=== PATIENT | male | born 1960 | race Caucasian/White ===

== ENCOUNTER → 2024-08-08 | Day surgery (SDC) | payer OTHER ==
[2024-08-07 12:46] LABS: BASOPHILS # (AUTO) 0.1 (0.0-0.1); BASOPHILS % 1.6 % (0.0-1.0); EOSINOPHILS # (AUTO) 0.2 (0.0-0.4); EOSINOPHILS % 2.9 % (0.0-6.0); HEMATOCRIT 44.1 % (38.2-49.6); HEMOGLOBIN 14.3 g/dL (14.0-18.0); LYMPHOCYTES # (AUTO) 1.2 (1.0-3.2); LYMPHOCYTES % 22.6 % (18.0-39.1); MEAN CORPUSCULAR HGB CONC 32.4 g/dL (31-35); MEAN CORPUSCULAR VOLUME 89.5 fL (81-99); MONOCYTES # (AUTO) 0.3 (0.2-0.8); MONOCYTES % 6.7 % (4.4-11.3); NEUTROPHILS # (AUTO) 3.4 (2.1-6.9); PLATELET COUNT 205 x10e3/uL (140-360); RED BLOOD COUNT 4.93 x10e6/uL (4.3-5.7); RED CELL DISTRIBUTION WIDTH 12.8 % (11.7-14.4); WHITE BLOOD COUNT 5.09 x10e3/uL (4.8-10.8)
[2024-08-07 13:00] LABS: ANION GAP 14.7 mmol/L (8-16); CALCIUM 9.1 mg/dL (8.4-10.2); CREATININE, SERUM 1.93 mg/dL (0.72-1.25); POTASSIUM 3.7 mmol/L (3.5-5.1)
[~2024-08-08] MED LIST: ALBUTEROL/IPRATROPIUM 3 ML NEB ONE; ALFUZOSIN HCL10 MG; AMLODIPINE BESY10 MG PO; ATORVASTATIN CA20 MG PO; FAMOTIDINE 20 MG/2 ML VIAL IV ONE; FENTANYL CITRATE/PF 100MCG/2 ML INJ ONE; IOPAMIDOL 610MG/1ML 300 MG/ML VIAL IV ONE; LIDOCAINE HCL 2% LOCAL INJ 5 ML SDV VIAL INJ ONE; ONDANSETRON HCL INJ 2MG/ML 2ML 2 MG/ML VIAL ONE; PROPOFOL IV EMULSION 10 MG/ML 20 ML VIAL ONE; SEVOFLURANE INHAL SOLN 250 ML PEN BTL ONE
[2024-08-08] MEDS: LACTATED RINGER'S 1,000 ML ONE (09:57)
[2024-08-08] MEDS: PIPERACILLIN/TAZOBACTAM 3.375 GM VIAL ONE (09:58)
[2024-08-08] MEDS: GENTAMICIN 80MG/NS 100 ML 200 ML IV ONE (09:58)
[2024-08-08 10:48] VITALS: TEMP 97
[2024-08-08] MEDS: FUROSEMIDE INJ 10 MG/ML 4 ML VIAL ONE (11:09)
[2024-08-08 11:20] VITALS: O2SAT 94
[2024-08-08] MEDS: PHENAZOPYRIDINE HCL 100 MG TAB ONE (11:34)
[2024-08-08 12:15] VITALS: BP 128/72; PULSE 67; RESP 18
== END | disposition home or self-care (01) ==
LOC: OR 06:27
PROVIDERS: ATTEND Urology
DX: R97.20 Elevated prostate specific antigen [PSA] (principal); N40.1 Benign prostatic hyperplasia with lower urinary tract symptoms; N13.8 Other obstructive and reflux uropathy; R39.14 Feeling of incomplete bladder emptying; E11.22 Type 2 diabetes mellitus with diabetic chronic kidney disease; I12.9 Hypertensive chronic kidney disease with stage 1 through stage 4 chronic kidney disease, or unspecified chronic kidney disease; N18.30 Chronic kidney disease, stage 3 unspecified; N32.89 Other specified disorders of bladder; N42.89 Other specified disorders of prostate; G47.33 Obstructive sleep apnea (adult) (pediatric); E78.5 Hyperlipidemia, unspecified; E66.01 Morbid (severe) obesity due to excess calories; K21.9 Gastro-esophageal reflux disease without esophagitis; Z01.810 Encounter for preprocedural cardiovascular examination; Z01.812 Encounter for preprocedural laboratory examination; Z85.21 Personal history of malignant neoplasm of larynx; Z92.3 Personal history of irradiation; Z79.84 Long term (current) use of oral hypoglycemic drugs; Z79.899 Other long term (current) drug therapy; Z68.37 Body mass index [BMI] 37.0-37.9, adult
CPT/HCPCS: 36415; 52005; 55700; 71045; 74420; 76872; 76998; 80048; 85025; 88305; 93005; C1758; J1580; J1940; J2003; J2405; J2543; J2704; J3010; J7121; Q9967